=== PATIENT | female | born 1960 | race Asian ===

== ENCOUNTER → 2017-05-11 | Outpatient (CLI) | payer BC ==
[~2017-05-11] MED LIST: ALPRAZOLAM0.25 MG PO; AMBIEN10 MG PO; CALCIUM 600600 M2; LEVAQUIN 750MG750 MG PO; LORTAB 5/500 501 TAB PO; MOTRIN800 MG PO; OYSCO 500500 M1 PO; PREMPRO 0.625 M1 TA1 PO; VITAMIN D31000 I1 PO
== END ==
LOC: MC.RAD 15:00
DX: Z12.31 Encounter for screening mammogram for malignant neoplasm of breast (principal)

== ENCOUNTER 2017-10-27 12:59 | Emergency (ER) | payer BC ==
[~2017-10-27] VITALS: Wt 58.6 kg
[2017-10-27 13:45] VITALS: BP 140/85; PULSE 79
== END 2017-10-27 13:46 | disposition home or self-care (01) ==
LOC: COL.ER 12:59
DX: R13.19 Other dysphagia (principal); Z98.890 Other specified postprocedural states

== ENCOUNTER → 2018-01-30 | Outpatient (CLI) | payer BC | LOC: COL.RAD 12:14 | DX: M51.27 Other intervertebral disc displacement, lumbosacral region (principal); M48.062 Spinal stenosis, lumbar region with neurogenic claudication ==

== ENCOUNTER 2018-04-24 15:45 | Outpatient (RCR) | payer BC | END 2018-05-11 | disposition home or self-care (01) | LOC: WSPT | DX: M54.42 Lumbago with sciatica, left side (principal); M54.41 Lumbago with sciatica, right side; M48.062 Spinal stenosis, lumbar region with neurogenic claudication; R29.898 Other symptoms and signs involving the musculoskeletal system; Z98.1 Arthrodesis status ==

== ENCOUNTER → 2018-05-02 | Outpatient (CLI) | payer BC | LOC: MHCPAIN 09:02 | DX: G89.29 Other chronic pain (principal); M47.817 Spondylosis without myelopathy or radiculopathy, lumbosacral region; M54.16 Radiculopathy, lumbar region; M53.3 Sacrococcygeal disorders, not elsewhere classified | CPT/HCPCS: G0463 ==

== ENCOUNTER 2018-05-08 10:30 | Outpatient (RCR) | payer BC | END 2018-05-11 13:26 | disposition home or self-care (01) | LOC: WSPT 10:30 | DX: Z47.89 Encounter for other orthopedic aftercare (principal); Z98.1 Arthrodesis status; Z96.7 Presence of other bone and tendon implants ==

== ENCOUNTER 2018-08-28 00:36 | Emergency (ER) | payer BC ==
[~2018-08-28] VITALS: Ht 167.6 cm; Wt 61.4 kg
[2018-08-28 00:42] VITALS: TEMP 97.8
[2018-08-28 01:08] LABS: COLLECTION METHOD CLEAN CATCH
[2018-08-28 01:15] LABS: BASO % 0.5 % (0.0-2.0); EOS # 0.2 (0.0-0.7); EOS % 2.6 % (0-4.0); GRAN # 2.8 (1.4-6.5); GRAN % 45.5 % (42.2-75.2); HEMATOCRIT 38.8 % (37.0-47.0); HEMOGLOBIN 13.1 g/dl (12.5-16.0); LYMPH # 2.7 (1.2-3.4); LYMPH % 44.6 % (20.0-51.0); MEAN CELL VOLUME 96 fl (80.0-100.0); MEAN CORPUSCULAR HEMOGLOBIN 33 pg (27.0-31.0); MEAN CORPUSCULAR HGB CONC 34 g/dl (33.0-37.0); MEAN PLATELET VOLUME 10.4 fl (7.4-10.4); MONO # 0.4 (0.1-0.6); MONO % 6.5 % (1.7-9.3); PLATELET COUNT 192 K/mm3 (130-400); RED BLOOD COUNT 4.03 M/mm3 (4.10-5.30); REDCELL DISTRIBUTION WIDTH-CV 11.9 % (11.5-14.5)
[2018-08-28 01:20] LABS: PH 6 (5-8); SQUAMOUS EPITHELIAL 0-2 /hpf; URINE APPEARANCE Hazy; URINE BACTERIA Rare /hpf; URINE BILIRUBIN Negative (NEGATIVE); URINE BLOOD Negative (NEGATIVE); URINE COLOR Yellow; URINE GLUCOSE Negative (NEGATIVE); URINE KETONE Negative (NEGATIVE); URINE LEUKOCYTE ESTERASE Negative (NEGATIVE); URINE NITRATE Negative (NEGATIVE); URINE PROTEIN(semi-quant) Negative (NEGATIVE); URINE RBC 0-2 /hpf; URINE UROBILINOGEN Negative (NEGATIVE)
[2018-08-28 01:25] LABS: ALANINE AMINOTRANSFERASE 33 U/L (9-52); ALBUMIN 4.2 gm/dL (3.5-5.0); ALKALINE PHOSPHATASE 50 U/L (50-136); ANION GAP 8 mmol/L (7-16); AST,SGOT 36 U/L (15-37); BILIRUBIN,TOTAL 0.4 mg/dL (0.0-1.0); BLOOD UREA NITROGEN 22 mg/dL (7-17); CALCIUM 9.3 mg/dL (8.4-10.2); CARBON DIOXIDE 29 mmol/L (22-30); CHLORIDE 102 mmol/L (98-107); CREATININE, serum 0.63 mg/dL (0.52-1.25); GLUCOSE 103 mg/dL (74-106); LIPASE 86 U/L (23-300); POTASSIUM 4.3 mmol/L (3.4-5.0); SODIUM 139 mmol/L (137-145); TOTAL PROTEIN 8.1 gm/dL (6.4-8.2)
[2018-08-28 01:26] LABS: C-REACTIVE PROTEIN < 0.5 mg/dL (0.0-0.9)
[2018-08-28] MEDS ORDERED: PROTONIX 40MG T40 MG PO (02:06)
[2018-08-28 02:21] VITALS: BP 108/73; PULSE 58
== END 2018-08-28 02:24 | disposition home or self-care (01) ==
LOC: COL.ER 00:36
PROVIDERS: Physician Assistant
DX: R10.13 Epigastric pain (principal); R10.11 Right upper quadrant pain; F41.9 Anxiety disorder, unspecified
CPT/HCPCS: J7030

== ENCOUNTER → 2018-08-29 | Outpatient (CLI) | payer BC ==
[~2018-08-29] MED LIST changes: +PROTONIX 40MG T40 MG PO
== END ==
LOC: COL.RAD 07:27
DX: R10.11 Right upper quadrant pain (principal)

== ENCOUNTER 2019-06-05 07:01 | Day surgery (SDC) | payer BC ==
[~2019-06-05] VITALS: Ht 167.6 cm; Wt 60.8 kg
[2019-06-05] MEDS ORDERED: VITAMIND3 5000 PO (07:33)
[2019-06-05] MEDS ORDERED: CALCIUM 600600 MG PO (07:33)
[2019-06-05] MEDS ORDERED: PROBIOTIC FORMU1 CAP PO (07:34)
[2019-06-05 08:01] VITALS: BP 106/59; PULSE 57; TEMP 98.3
[2019-06-05 09:20] VITALS: BP 101/69; PULSE 60
--- NOTE | 2019-06-05 09:20 | NUR ---
Patient returns to [facility] 3 ambulatory and assisted from cart to recliner by Marisela RN. IV fluids infusing and site is free of redness or drainage. Call light in reach and spouse in room. Allowed to rest.
[2019-06-05 09:35] VITALS: BP 93/59; PULSE 47
--- NOTE | 2019-06-05 09:35 | NUR ---
Continues to rest with eyes closed and spouse in room.
[2019-06-05 09:50] VITALS: BP 91/56; PULSE 53
--- NOTE | 2019-06-05 09:50 | NUR ---
Drinking water brought from home. Denies nausea or difficulty swallowing.
[2019-06-05 10:05] VITALS: BP 89/63; PULSE 55
--- NOTE | 2019-06-05 10:05 | NUR ---
More awake and drinking water brought from home. Offered snack and refuses. States that she has food at home. IV discontinued and is able to dress self.
--- NOTE | 2019-06-05 10:25 | NUR ---
Dismissal instructions given and patient and spouse both verbalize understanding of these. All questions were answered.
--- NOTE | 2019-06-05 10:32 | NUR ---
Patient dismissed to home driven by spouse and taken to the front door per wheelchair by this RN and assisted into car with instructions in hand.
== END 2019-06-05 10:32 | disposition home or self-care (01) ==
LOC: SDCO 07:01
DX: Z12.11 Encounter for screening for malignant neoplasm of colon (principal); K64.0 First degree hemorrhoids; K29.40 Chronic atrophic gastritis without bleeding
CPT/HCPCS: J2250; J2405; J3010; J7030

== ENCOUNTER → 2020-02-04 | Outpatient (CLI) | payer BC ==
[~2020-02-04] MED LIST changes: +CALCIUM 600600 MG PO; +PROBIOTIC FORMU1 CAP PO; +VITAMIND3 5000 PO
== END ==
LOC: MC.RAD 11-12 14:45
DX: Z12.31 Encounter for screening mammogram for malignant neoplasm of breast (principal)

== ENCOUNTER 2021-01-13 16:35 | Emergency (ER) | payer BC ==
[~2021-01-13] VITALS: Ht 167.6 cm; Wt 60.9 kg
[2021-01-13 16:58] VITALS: TEMP 98.3
[2021-01-13 18:57] VITALS: BP 139/84; PULSE 62
== END 2021-01-13 18:57 | disposition home or self-care (01) ==
LOC: COL.ER 16:35
DX: D18.01 Hemangioma of skin and subcutaneous tissue (principal)

== ENCOUNTER → 2021-04-16 | Outpatient (CLI) | payer BC | LOC: MC.RAD 08:30 | DX: Z12.31 Encounter for screening mammogram for malignant neoplasm of breast (principal) ==

== ENCOUNTER → 2021-08-27 | Outpatient (CLI) | payer BC | LOC: COL.RAD 08:15 | DX: M54.2 Cervicalgia (principal) | CPT/HCPCS: A9575 ==